=== PATIENT | male | born 1940 | race Caucasian/White ===

== ENCOUNTER 2020-02-27 09:46 | Inpatient (IN) | payer MEDICARE, OTHER ==
[2020-02-27 10:59] LABS: PCO2 ARTERIAL,POC 55 mmHg (35-48); PH ARTERIAL,POC 7.2 pH (7.35-7.45); PO2 ARTERIAL,POC 63 mmHg (83-108)
--- NOTE | 2020-02-27 11:01 | EDM.PDOC ---
ED HPI GENERAL MEDICAL PROBLEM - General Chief Complaint: Respiratory Problem Stated Complaint: SOB Time Seen by Provider: 02/27/20 10:00 Source of Information: Reports: Patient, Family History Limitations: Reports: No Limitations - History of Present Illness INITIAL COMMENTS - FREE TEXT/NARRATIVE: Patient presented to the ED because of increasing cough,lethargy, dyspnea for th e past week. The cough is mostly non-productive, no associated fever or chills. His dyspnea got worse this morning and was seen in the clinic and was subsequently referred to the ED because he was hypoxemic with oxygen saturation of 40's. He is on home O2 due to his COPD and CHF but it doesn't seem to help with his dyspnea. Last night he had watery stools,denies any abdominal pain, nausea, or vomiting. Other Treatments [employer]: O2 4L/min NC. Duo nebulization. - Related Data Allergies Allergy/AdvReac Type Severity Reaction Status Date / Time Penicillins Allergy Other Verified 02/22/18 13:52 Home Meds: Home Meds Lisinopril 5 mg PO DAILY 04/13/14 [History] Albuterol/Ipratropium [DuoNeb 3.0-0.5 MG/3 ML] 3 ml INH BID 02/22/18 [History] Aspirin [Adult Aspirin] 81 mg PO DAILY 02/22/18 [History] Budesonide [Pulmicort] 0.5 mg IH BID 02/22/18 [History] Furosemide [Lasix] 20 mg PO DAILY 02/22/18 [History] atorvaSTATin [Lipitor] 20 mg PO BEDTIME 02/22/18 [History] carvediloL [Carvedilol] 12.5 mg PO BID 02/22/18 [History] traZODone HCl [Trazodone HCl] 50 mg PO BEDTIME 02/22/18 [History] Past Medical History HEENT History: Reports: Cataract Cardiovascular History: Reports: Heart Failure, High Cholesterol, Hypertension, Pacemaker, SOB on Exertion Respiratory History: Reports: COPD, Pneumonia, Recurrent, Sleep Apnea, SOB Genitourinary History: Reports: Prostate Disorder, Renal Disease Neurological History: Reports: None - Infectious Disease History Infectious Disease History: Reports: Mumps - Past Surgical History HEENT Surgical History: Reports: Oral Surgery Respiratory Surgical History: Reports: None GI Surgical History: Reports: Appendectomy, Cholecystectomy, Colonoscopy Male Surgical History: Reports: None Neurological Surgical History: Reports: None Social & Family History - Family History Family Medical History: Unobtainable - Caffeine Use Caffeine Use: Reports: Coffee ED ROS GENERAL - Review of Systems Review Of Systems: See Below Constitutional: Reports: Malaise, Weakness HEENT: Reports: No Symptoms Respiratory: Reports: Shortness of Breath, Cough. Denies: Sputum Cardiovascular: Reports: No Symptoms GI/Abdominal: Reports: No Symptoms : Reports: No Symptoms Musculoskeletal: Reports: No Symptoms Skin: Reports: No Symptoms Neurological: Reports: Weakness Psychiatric: Reports: No Symptoms ED EXAM, GENERAL - Physical Exam Exam: See Below Exam Limited By: Altered Mental Status General Appearance: Lethargic Eye Exam: Bilateral Eye: PERRL Ears: Normal External Exam Nose: Normal Inspection, Normal Mucosa Throat/Mouth: Normal Inspection, Normal Lips, No Airway Compromise Head: Atraumatic, Normocephalic Neck: Normal Inspection, Supple, Non-Tender Respiratory/Chest: No Respiratory Distress, Decreased Breath Sounds, Crackles Cardiovascular: Normal Peripheral Pulses, Regular Rate, Rhythm, No Gallop, No JVD, No Murmur GI/Abdominal: Normal Bowel Sounds, Soft, Non-Tender, No Organomegaly, Other (hyperactive bowel sound) Back Exam: Normal Inspection Extremities: Normal Inspection Neurological: Alert, Oriented, CN II-XII Intact Psychiatric: Normal Affect Skin Exam: Warm Course - Vital Signs Text/Narrative:: Labs/EKG/Chest xray result was discussed with patient and his Covid-positive NS @ 75 ml/hr Last Recorded V/S: Last Vital Signs Temp 36.4 C 02/27/20 09:46 Pulse 72 02/27/20 10:32 Resp 37 H 02/27/20 10:32 BP 104/65 02/27/20 10:32 Pulse Ox 90 L 02/27/20 10:32 - Orders/Labs/Meds Orders: Active Orders 24 hr Category Date Time Status Patient Status Manage Transfer [TRANSFER] Routine ADT 02/27/20 11:31 Active EKG Documentation Completion [RC] ASDIRECTED Care 02/27/20 10:00 Active Oxygen Therapy [RC] ASDIRECTED Care 02/27/20 10:01 Active Telemetry Monitoring [Cardiac Monitoring] [RC] .As Care 02/27/20 11:43 Active Directed Chest 1V Frontal [CR] Stat Exams 02/27/20 09:59 Taken UA W/MICROSCOPIC [URIN] Stat Lab 02/27/20 10:25 Ordered Sodium Chloride 0.9% [Saline Flush] Med 02/27/20 09:59 Active 10 ml FLUSH ASDIRECTED PRN Saline Lock Insert [OM.PC] Routine Oth 02/27/20 09:59 Ordered EKG 12 Lead [EK] Routine Ther 02/27/20 09:59 Ordered Medication Orders Sodium Chloride (Saline Flush) 10 ml FLUSH ASDIRECTED PRN PRN Reason: Keep Vein Open Labs: Laboratory Tests 02/27/20 02/27/20 02/27/20 Range/Units 10:11 10:11 10:11 WBC 6.4 (4.5-12.0) X10-3/uL RBC 5.05 (4.30-5.75) x10(6)uL Hgb 14.9 (13.5-17.8) g/dL Hct 46.2 (30.0-51.3) % MCV 91.5 (80-96) fL MCH 29.5 (27.7-33.6) pg MCHC 32.3 (32.2-35.4) g/dL RDW 13.2 (11.5-15.5) % Plt Count 119 L (125-369) X10(3)uL MPV 8.4 (7.4-10.4) fL Neut % (Auto) 69.6 (46-82) % Lymph % (Auto) 15.4 (13-37) % [place] % (Auto) 14.6 H (4-12) % Eos % (Auto) 0 L (1.0-5.0) % Baso % (Auto) 0 (0-2) % Neut # (Auto) 4.5 (1.6-8.3) # Lymph # (Auto) 1.0 (0.6-5.0) # [place] # (Auto) 0.9 (0.0-1.3) # Eos # (Auto) 0.0 (0.0-0.8) # Baso # (Auto) 0.0 (0.0-0.2) # PT (9.0-11.1) sec INR (1.00-1.24) APTT (24.4-33.2) SECONDS POC ABG pH (7.35-7.45) pH POC ABG pCO2 (35-48) mmHg POC ABG pO2 (83-108) mmHg POC ABG HCO3 (21-28) mmol/L ABG O2 Sat (Calculated) (94-98) % POC ABG Base Excess (-2-3) mmol/L Dl Test (PASS) O2 Delivery Device Sodium 137 (135-145) mmol/L Potassium 5.3 (3.5-5.3) mmol/L Chloride 102 (100-110) mmol/L Carbon Dioxide 24 (21-32) mmol/L BUN 71 H D (7-18) mg/dL Creatinine 2.7 H* (0.70-1.30) mg/dL Est Cr Clr Drug Dosing 19.61 mL/min Estimated GFR (MDRD) 23 L (>60) BUN/Creatinine Ratio 26.3 H (9-20) Glucose 162 H (80-116) mg/dL Calcium 8.8 (8.6-10.2) mg/dL Total Bilirubin 0.5 (0.1-1.3) mg/dL AST 31 H D (5-25) IU/L ALT 27 D (12-36) U/L Alkaline Phosphatase 38 L (56-112) IU/L Troponin I 31.9 (4.0-60.3) pg/mL NT-Pro-B Natriuret Pep 2681 H* (<=450) pg/mL Total Protein 7.7 (6.0-8.0) g/dL Albumin 3.2 (3.2-4.6) g/dL Globulin 4.5 g/dL Albumin/Globulin Ratio 0.7 SARS-CoV-2 RNA (GELY) (NEGATIVE) 02/27/20 02/27/20 02/27/20 Range/Units 10:11 10:25 10:50 WBC (4.5-12.0) X10-3/uL RBC (4.30-5.75) x10(6)uL Hgb (13.5-17.8) g/dL Hct (30.0-51.3) % MCV (80-96) fL MCH (27.7-33.6) pg MCHC (32.2-35.4) g/dL RDW (11.5-15.5) % Plt Count (125-369) X10(3)uL MPV (7.4-10.4) fL Neut % (Auto) (46-82) % Lymph % (Auto) (13-37) % [place] % (Auto) (4-12) % Eos % (Auto) (1.0-5.0) % Baso % (Auto) (0-2) % Neut # (Auto) (1.6-8.3) # Lymph # (Auto) (0.6-5.0) # [place] # (Auto) (0.0-1.3) # Eos # (Auto) (0.0-0.8) # Baso # (Auto) (0.0-0.2) # PT 11.1 (9.0-11.1) sec INR 1.03 (1.00-1.24) APTT 38.5 H (24.4-33.2) SECONDS POC ABG pH 7.2 L* (7.35-7.45) pH POC ABG pCO2 55 H (35-48) mmHg POC ABG pO2 63 L (83-108) mmHg POC ABG HCO3 22 (21-28) mmol/L ABG O2 Sat (Calculated) 86.2 L (94-98) % POC ABG Base Excess -6 L (-2-3) mmol/L Dl Test Pass (PASS) O2 Delivery Device Nasal cannula Sodium (135-145) mmol/L Potassium (3.5-5.3) mmol/L Chloride (100-110) mmol/L Carbon Dioxide (21-32) mmol/L BUN (7-18) mg/dL Creatinine (0.70-1.30) mg/dL Est Cr Clr Drug Dosing mL/min Estimated GFR (MDRD) (>60) BUN/Creatinine Ratio (9-20) Glucose (80-116) mg/dL Calcium (8.6-10.2) mg/dL Total Bilirubin (0.1-1.3) mg/dL AST (5-25) IU/L ALT (12-36) U/L Alkaline Phosphatase (56-112) IU/L Troponin I (4.0-60.3) pg/mL NT-Pro-B Natriuret Pep (<=450) pg/mL Total Protein (6.0-8.0) g/dL Albumin (3.2-4.6) g/dL Globulin g/dL Albumin/Globulin Ratio SARS-CoV-2 RNA (GELY) Positive H (NEGATIVE) Meds: Medications Generic Name Dose Route Start Last Admin Trade Name Freq PRN Reason Stop Dose Admin Sodium Chloride 10 ml 02/27/20 09:59 Saline Flush FLUSH ASDIRECTED PRN Keep Vein Open Departure - Departure Time of Disposition: 11:00 Disposition: Admitted As Inpatient 67 Condition: Good Clinical Impression: Coronavirus infection, Dehydration, JUMA (acute kidney injury) - Discharge Information Referrals: Dannie Sanchez MD [Primary Care Provider] - Forms: ED Department Discharge Sepsis Event Note (ED) - Evaluation Sepsis Screening Result: No Definite Risk - Focused Exam Vital Signs: Vital Signs Temp Pulse Resp BP Pulse Ox 02/27/20 10:32 72 37 H 104/65 90 L 02/27/20 09:46 36.4 C 76 39 H 117/44 L 87 L - My Orders Last 24 Hours: My Active Orders 02/27/20 09:59 Chest 1V Frontal [CR] Stat Sodium Chloride 0.9% [Saline Flush] 10 ml FLUSH ASDIRECTED PRN Saline Lock Insert [OM.PC] Routine EKG 12 Lead [EK] Routine 02/27/20 10:00 EKG Documentation Completion [RC] ASDIRECTED 02/27/20 10:01 Oxygen Therapy [RC] ASDIRECTED 02/27/20 10:25 UA W/MICROSCOPIC [URIN] Stat 02/27/20 11:31 Patient Status Manage Transfer [TRANSFER] Routine 02/27/20 11:43 Telemetry Monitoring [Cardiac Monitoring] [RC] .As Directed - Assessment/Plan Last 24 Hours: My Active Orders 02/27/20 09:59 Chest 1V Frontal [CR] Stat Sodium Chloride 0.9% [Saline Flush] 10 ml FLUSH ASDIRECTED PRN Saline Lock Insert [OM.PC] Routine EKG 12 Lead [EK] Routine 02/27/20 10:00 EKG Documentation Completion [RC] ASDIRECTED 02/27/20 10:01 Oxygen Therapy [RC] ASDIRECTED 02/27/20 10:25 UA W/MICROSCOPIC [URIN] Stat 02/27/20 11:31 Patient Status Manage Transfer [TRANSFER] Routine 02/27/20 11:43 Telemetry Monitoring [Cardiac Monitoring] [RC] .As Directed
--- NOTE | 2020-02-27 12:48 | CR ---
INDICATION: Dyspnea. CHEST ONE VIEW: An AP upright portable view of the chest was obtained 02/27/20 and compared with 02/22/18 and 04/14/14. The heart appears to be at the upper limits of normal in size and essentially unchanged from the previous study with bipolar pacemaker leads that are stable in position. Somewhat heavy markings at the lung bases likely are fibrotic in nature, but make it difficult to exclude minimal patchy bronchopneumonia. However, no gross consolidating pneumonia or effusion was seen. Overlying EKG leads are noted. IMPRESSION: Fairly stable appearance of the chest compared with 02/22/18 - correlate clinically. Difficult to exclude patchy bronchopneumonia at the lung bases, especially on the left. MTDD
[2020-02-27] MEDS ORDERED: Dexamethasone 4 MG/ML SDV IVPUSH ONE (13:09)
[2020-02-27] MEDS ORDERED: Sodium Chloride 0.9% 1,000 ML IV ONE (13:21)
[2020-02-27] MEDS ORDERED: REMDESIVIR 200 MG in Sodium Chloride 0.9% 250 ML IV ONE (13:31)
[2020-02-27] MEDS: Heparin Sodium 5,000 Units/ML Vial SUBCUT SCH ×2 (14:18→20:53)
[2020-02-27] MEDS ORDERED: Sodium Chloride 0.9% 1,000 ML IV SCH (14:43)
--- NOTE | 2020-02-27 14:54 | HP ---
ADMISSION DATE: 02/27/2020 History is from the patient and his clinic record. He is short of breath and unable to give much history. CHIEF COMPLAINT: Respiratory infection with COVID virus. HISTORY OF PRESENT ILLNESS: Mr. Nicolas is a 79-year-old man with a history of severe COPD, chronic cardiomyopathy with congestive heart failure and pacemaker implant. This was in the face of normal coronary arteries, hyperlipidemia, and hypertension. According to the patient, he had been feeling ill for over a week at home with diarrhea, weakness, respiratory difficulty. He normally wears oxygen at home and uses a BiPAP machine at night and during naps. For this reason, he came into the emergency room and is admitted for further respiratory treatment. He is declared code 3 DNR/DNI status. PAST MEDICAL HISTORY: 1. 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 2. He also has chronic obstructive sleep apnea. 3. Dyslipidemia. 4. History of ventricular tachycardia. 5. CKD, stage 3. 6. COPD. 7. Restless legs syndrome. 8. Gastritis. 9. Hypertension. 10.Hyperlipidemia. PAST SURGICAL HISTORY: He is status post bilateral cataract surgeries, blepharoplasty, and still has lower lid ectropion on the right. MEDICATIONS: 1. Aspirin 81 mg daily. 2. Xopenex 1 nebulizer every 4 hours p.r.n. 3. Lisinopril 5 mg daily. 4. Furosemide 20 mg daily. 5. Coreg 12.5 mg b.i.d. 6. Atorvastatin 20 mg at bedtime. 7. Budesonide nebulizer twice a day. 8. Brovana nebulizer twice a day. 9. Trazodone 25 to 50 mg at bedtime for sleep. ALLERGIES: Penicillin causes a rash. HABITS: Extensive history of cigarette smoking. No alcohol. FAMILY HISTORY: Parents both had hypertension. SOCIAL HISTORY: The patient is and lives with his in [place]. He is a retired school nurse. REVIEW OF SYSTEMS: GENERAL: No seizure, syncope, or recent significant weight change. SKIN: Negative for rash. HEENT: No recent changes in hearing or vision. 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 No sore throat or URI. CHEST: He does have a chronic cough and dyspnea on exertion. This has been slightly worse during the last week. ABDOMEN: No abdominal pain, nausea. He does report diarrhea, watery stools, but no blood in the stool. No hematuria. MUSCULOSKELETAL: No joint inflammation, swelling, or skin rash. PHYSICAL EXAMINATION: GENERAL: He is somewhat lethargic, but will open his eyes and answer questions. VITAL SIGNS: Blood pressure 104/65, pulse 72 and regular, respirations 35, O2 saturation 91% on 5 L nasal cannula. Weight 205 pounds. SKIN: Anicteric. Warm and dry without rash. HEENT: Shows pupils to be equal and reactive. He has right lid ectropion. Throat is clear. LUNGS: Have distant breath sounds. He has expiratory wheezes. No focal consolidation. HEART: Regular. No murmur or gallop heard. ABDOMEN: Normal bowel sounds. Soft and nontender. EXTREMITIES: Show no edema at the ankles. LABORATORY DATA: White count 6400, hemoglobin 14.9, platelets 119. Arterial pH 7.2, pCO2 of 55, PO2 of 63 on 5 L nasal cannula oxygen. Potassium 5.3, BUN 71, creatinine 2.7. BNP 2681. COVID RNA test positive. ASSESSMENT: 1. Acute COVID-19 viral infection. 2. Severe chronic obstructive pulmonary disease. 3. Idiopathic cardiomyopathy with low ejection fraction. 4. Right eyelid infection. 5. Chronic kidney disease, stage 3 to 4. 6. Obstructive sleep apnea. PLAN: He is admitted to our COVID-19 Respiratory Unit. I performed his exam while in full infection gear with gloves, gown, and PAPR device. We will continue his previously requested DNR status. We will use his BiPAP device as needed. Prognosis is quite guarded. /[id number] RO/MODL
[2020-02-27] MEDS: Carvedilol 12.5 MG Tab PO SCH (20:14)
[2020-02-27] MEDS: Budesonide 0.5 MG/2 ML Neb Susp NEB SCH (20:21)
[2020-02-27] MEDS: Arformoterol 15 MCG/2 ML Neb Soln NEB SCH (20:21)
[2020-02-27] MEDS ORDERED: Budesonide 0.5 MG/2 ML Neb Susp NEB SCH (21:00)
[2020-02-28] MEDS ORDERED: Morphine 4 MG/ML VIAL IVPUSH PRN (04:47)
[2020-02-28] MEDS: Sodium Chloride 0.9% 10 ML Syringe FLUSH PRN ×2 (05:11→22:51)
[2020-02-28] MEDS: Heparin Sodium 5,000 Units/ML Vial SUBCUT SCH ×3 (05:18→20:21)
[2020-02-28] MEDS: Arformoterol 15 MCG/2 ML Neb Soln NEB SCH ×2 (06:55→20:17)
[2020-02-28] MEDS: Budesonide 0.5 MG/2 ML Neb Susp NEB SCH ×2 (07:05→20:16)
--- NOTE | 2020-02-28 09:16 | PN ---
DATE SEEN: 02/28/2020 HISTORY: Mike is a 79-year-old man with severe COPD and idiopathic cardiomyopathy, who was admitted with an acute COVID infection. He has been on home O2 and on admission he required 5 L of oxygen to maintain his saturations. His BiPAP was applied. He was moderately restless overnight and received a dose of 4 mg morphine and answer questions. He does not volunteer verbalization. PHYSICAL EXAMINATION: VITAL SIGNS: Blood pressure 108/62, pulse is 64 and irregular, respirations 22, O2 saturation 93% on 4 L nasal cannula this morning. Weight 210 pounds. SKIN: Clear without rash or trauma. HEENT: Mouth was dry. LUNGS: He had distant breath sounds. He had fine rales at both bases and slight rhonchi at the left mid lung field. HEART: Irregular. No murmur heard. Heart sounds are distant. ABDOMEN: Soft, normal bowel sounds, nontender. EXTREMITIES: No edema at the ankles. LABORATORY DATA: Hemoglobin 14.3, white count 4000, platelets 121. PTT 58. BUN 79, slightly higher than yesterday; creatinine 2.4, down from 2.7 yesterday. ASSESSMENT: 1. Acute COVID infection. 2. Severe chronic obstructive pulmonary disease. 3. Idiopathic cardiomyopathy. 4. Chronic atrial fibrillation. 5. Cardiac arrhythmia, likely atrial fibrillation. 6. Chronic kidney disease stage 4. PLAN: We will continue his daily dexamethasone, respiratory support. Because of his poor renal function, he is not a candidate for remdesivir. Condition remains extremely guarded. /[id number] DELANEY/MELIZA
[2020-02-28] MEDS: Carvedilol 12.5 MG Tab PO SCH ×2 (10:26→20:14)
[2020-02-28] MEDS: Sodium Chloride 0.9% 1,000 ML IV SCH ×2 (10:46→23:09)
[2020-02-28] MEDS: Morphine 2 MG/ML SYRINGE IVPUSH PRN (22:47)
[2020-02-29] MEDS: Heparin Sodium 5,000 Units/ML Vial SUBCUT SCH ×3 (06:00→20:07)
[2020-02-29] MEDS: Arformoterol 15 MCG/2 ML Neb Soln NEB SCH ×2 (06:28→20:17)
[2020-02-29] MEDS: Budesonide 0.5 MG/2 ML Neb Susp NEB SCH ×2 (06:31→20:02)
[2020-02-29] MEDS: Carvedilol 12.5 MG Tab PO SCH ×2 (09:53→20:06)
--- NOTE | 2020-02-29 12:23 | PN ---
DATE SEEN: 02/29/2020 HISTORY: Mike is a 79-year-old man, admitted because of acute COVID respiratory infection. He has underlying severe chronic obstructive pulmonary disease and idiopathic cardiomyopathy with obstructive sleep apnea. The patient has been in the COVID unit on Remdesivir and has been tolerating it satisfactorily. He is examined in the COVID unit and I was in full protective gear with gloves, gown, and PAPR. PHYSICAL EXAMINATION: GENERAL: He is awake and alert, and is able to answer questions appropriately. VITAL SIGNS: Blood pressure 107/64, pulse 64 and irregular, respirations 20, O2 saturation this morning 88% on 5 L nasal cannula. Weight 212 pounds. SKIN: Shows no rash. LUNGS: Have distant breath sounds, but no consolidation. Expiratory wheezes are present bilaterally. HEART: Irregular. No murmur heard. ABDOMEN: Normal bowel sounds. Soft and nontender. EXTREMITIES: Showed no edema. LABORATORY DATA: PTT 51.4, PT 10.9. Potassium 6.1, BUN 91, creatinine 2.5. ASSESSMENT: 1. COVID respiratory infection. 2. Severe chronic obstructive pulmonary disease. 3. Idiopathic cardiomyopathy. 4. Chronic kidney disease stage IV. PLAN: Mike is not a candidate for Remdesivir because of his chronic kidney disease. He appears to be still be somewhat dehydrated. We will increase his IV fluids. Continue his other medications and reassess. Mike remains on do not resuscitate/do not intubate status. /[id number] RO/MODL
[2020-02-29] MEDS: Sodium Chloride 0.9% 1,000 ML IV SCH (12:24)
[2020-02-29] MEDS: Morphine 2 MG/ML SYRINGE IVPUSH PRN ×2 (14:59→18:16)
[2020-03-01] MEDS: Morphine 2 MG/ML SYRINGE IVPUSH PRN ×2 (02:16→11:14)
[2020-03-01] MEDS: Heparin Sodium 5,000 Units/ML Vial SUBCUT SCH ×2 (05:42→12:35)
[2020-03-01] MEDS: Budesonide 0.5 MG/2 ML Neb Susp NEB SCH (06:23)
[2020-03-01] MEDS: Arformoterol 15 MCG/2 ML Neb Soln NEB SCH (06:29)
[2020-03-01] MEDS: Sodium Chloride 0.9% 10 ML Syringe FLUSH PRN ×4 (07:04→11:41)
[2020-03-01] MEDS ORDERED: 50% Dextrose in Water 50 ML Syringe IVPUSH PRN (08:42)
[2020-03-01] MEDS ORDERED: Glucagon,Human Recombinant 1 MG Vial IM PRN (08:42)
[2020-03-01] MEDS ORDERED: Insulin Lispro 100 Unit/ML 3 ML KwikPen SUBCUT ONE ×2 (08:45→09:00)
[2020-03-01] MEDS: Carvedilol 12.5 MG Tab PO SCH (08:50)
[2020-03-01] MEDS ORDERED: Dexamethasone 2 MG Tab PO SCH (09:00)
[2020-03-01] MEDS ORDERED: LORazepam 0.5 MG Tab PO PRN ×2 (09:01→11:22)
--- NOTE | 2020-03-01 10:57 | PCM.PN ---
- General Info Date of Service: 03/01/20 Subjective Update: Having more shortness of breath, anxiety this morning, refuses to wear his home BiPAP machine. Has been getting PRN morphine for air hunger since he is a DNR/DNI but has not been helping. Drank a little this morning but hasn't eaten breakfast yet. Having more see saw breathing with wheezing, on Brovana and Pulmicort at home and here. - Patient Data Vitals - Most Recent: Last Vital Signs Temp 98.7 F 03/01/20 08:00 Pulse 78 03/01/20 08:50 Resp 40 H 03/01/20 08:00 BP 142/73 H 03/01/20 08:50 Pulse Ox 86 L 03/01/20 08:00 Weight - Most Recent: 210 lb 6 oz I&O - Last 24 Hours: Intake & Output 02/29/20 03/01/20 03/01/20 22:59 06:59 14:59 Intake Total 1055 300 Output Total 500 225 Balance 555 75 Lab Results Last 24 Hours: Laboratory Results - last 24 hr 02/29/20 03/01/20 03/01/20 Range/Units 11:43 05:45 06:35 APTT 29.5 (24.4-33.2) SECONDS Sodium (135-145) mmol/L Potassium (3.5-5.3) mmol/L Chloride (100-110) mmol/L Carbon Dioxide (21-32) mmol/L BUN (7-18) mg/dL Creatinine (0.70-1.30) mg/dL Est Cr Clr Drug Dosing mL/min Estimated GFR (MDRD) (>60) BUN/Creatinine Ratio (9-20) Glucose (80-116) mg/dL POC Glucose 191 H 159 H (74-100) mg/dL Calcium (8.6-10.2) mg/dL Phosphorus (2.6-4.6) mg/dL Albumin (3.2-4.6) g/dL 03/01/20 Range/Units 06:35 APTT (24.4-33.2) SECONDS Sodium 138 (135-145) mmol/L Potassium 6.7 H* (3.5-5.3) mmol/L Chloride 106 (100-110) mmol/L Carbon Dioxide 22 (21-32) mmol/L BUN 109 H* (7-18) mg/dL Creatinine 2.4 H* (0.70-1.30) mg/dL Est Cr Clr Drug Dosing 22.07 mL/min Estimated GFR (MDRD) 26 L (>60) BUN/Creatinine Ratio 45.4 H (9-20) Glucose 184 H (80-116) mg/dL POC Glucose (74-100) mg/dL Calcium 8.2 L (8.6-10.2) mg/dL Phosphorus 5.4 H (2.6-4.6) mg/dL Albumin 2.9 L (3.2-4.6) g/dL Med Orders - Current: Current Medications Arformoterol Tartrate (Brovana) 15 mcg NEB BIDRT [facility] Last Admin: 03/01/20 06:29 Dose: 15 mcg Documented by: Budesonide (Pulmicort) 0.5 mg NEB BIDRT [facility] Last Admin: 03/01/20 06:23 Dose: 0.5 mg Documented by: Carvedilol (Coreg) 12.5 mg PO BID [facility] Last Admin: 03/01/20 08:50 Dose: 12.5 mg Documented by: Dexamethasone (Dexamethasone) 6 mg PO DAILY [facility] Dextrose/Water (Dextrose 50% In Water) 50 ml IVPUSH ASDIRECTED PRN PRN Reason: Hypoglycemia Glucagon (Glucagen) 1 mg IM ASDIRECTED PRN PRN Reason: Hypoglycemia Heparin Sodium (Porcine) (Heparin Sodium) 5,000 units SUBCUT Q8H [facility] Last Admin: 03/01/20 05:42 Dose: 5,000 units Documented by: Lorazepam (Ativan) 0.25 mg PO Q4H PRN PRN Reason: Anxiety Last Admin: 03/01/20 09:40 Dose: 0.25 mg Documented by: Morphine Sulfate (Morphine) 2 mg IVPUSH Q4H PRN PRN Reason: Air Hunger Last Admin: 03/01/20 02:16 Dose: 2 mg Documented by: Sodium Chloride (Saline Flush) 10 ml FLUSH ASDIRECTED PRN PRN Reason: Keep Vein Open Last Admin: 03/01/20 08:50 Dose: 10 ml Documented by: Discontinued Medications Budesonide (Pulmicort) 0.5 mg NEB BID [facility] Dexamethasone (Decadron) 10 mg IVPUSH ONETIME ONE Stop: 02/27/20 13:10 Last Admin: 02/27/20 14:13 Dose: 10 mg Documented by: Dexamethasone (Dexamethasone) 3 mg PO BIDMEALS [facility] Last Admin: 03/01/20 08:47 Dose: 3 mg Documented by: Dexamethasone (Dexamethasone) 6 mg PO DAILY [facility] Dexamethasone (Dexamethasone) 3 mg PO ONETIME ONE Stop: 03/01/20 09:46 Heparin Sodium (Porcine) (Heparin Sodium) 7,500 units SUBCUT Q8H [facility] Last Admin: 02/28/20 13:02 Dose: 7,500 units Documented by: Sodium Chloride (Normal Saline) 1,000 mls @ 75 mls/hr IV ASDIRECTED ONE Stop: 02/28/20 02:40 Last Admin: 02/27/20 12:10 Dose: 75 mls/hr Documented by: Remdesivir 200 mg/ Sodium (Chloride) 250 mls @ 250 mls/hr IV ONETIME ONE Stop: 02/27/20 13:32 Last Admin: 02/27/20 17:20 Dose: Not Given Documented by: Sodium Chloride (Normal Saline) 1,000 mls @ 150 mls/hr IV ASDIRECTED [facility] Last Admin: 02/29/20 12:24 Dose: 150 mls/hr Documented by: Insulin Human Lispro (Humalog) 2 unit SUBCUT ONETIME ONE Stop: 03/01/20 08:46 Last Admin: 03/01/20 09:04 Dose: 2 unit Documented by: Morphine Sulfate (Morphine) 4 mg IVPUSH Q4H PRN PRN Reason: Air Hunger Last Admin: 02/28/20 05:10 Dose: 4 mg Documented by: - Exam Quality Assessment: Supplemental Oxygen, Urine Catheter, DVT Prophylaxis General: Alert, Oriented, Moderate Distress Lungs: Decreased Breath Sounds (bibasilar), Crackles (BUL), Wheezing (throughout), Other (See saw breathing, increased respiratory effort) Cardiovascular: Regular Rate, Regular Rhythm GI/Abdominal Exam: Normal Bowel Sounds, Soft, Non-Tender, No Distention Sepsis Event Note - Evaluation Sepsis Screening Result: No Definite Risk - Focused Exam Vital Signs: Vital Signs Temp Pulse Pulse Pulse Resp BP BP 03/01/20 08:50 78 142/73 H 03/01/20 08:00 98.7 F 77 40 H 142/73 H 03/01/20 06:23 74 72 03/01/20 00:00 98.2 F 72 22 H 142/81 H Pulse Ox Pulse Ox 03/01/20 08:50 03/01/20 08:00 86 L 03/01/20 06:23 03/01/20 00:00 92 L 92 L - Problem List & Annotations (1) Coronavirus infection SNOMED Code(s): 863231891 Code(s): B34.2 - CORONAVIRUS INFECTION, UNSPECIFIED Status: Acute Current Visit: Yes Annotation/Comment:: Not remdesivir candidate due to CKD, Dexamethasone 6 mg daily day 3. Hyperkalemia: Insulin 2 units now, recheck at noon, adjust based on labs. Morphine 2 mg IV as needed air hunger, added Ativan 0.5mg q2h as needed anxiety/air hunger. (2) CKD (chronic kidney disease), stage III SNOMED Code(s): 458526533 Code(s): N18.3 - CHRONIC KIDNEY DISEASE, STAGE 3 (MODERATE) * DO NOT USE * Status: Acute Current Visit: No Annotation/Comment:: 2.7 on admission, slowly improving. (3) COPD, Mild chronic obstructive pulmonary disease SNOMED Code(s): 641400058 Code(s): J44.9 - CHRONIC OBSTRUCTIVE PULMONARY DISEASE, UNSPECIFIED Status: Acute Current Visit: No Annotation/Comment:: Pulmicort & Brovana (4) Combined systolic and diastolic congestive heart failure SNOMED Code(s): 82711328, 063824174 Code(s): I50.40 - UNSP COMBINED SYSTOLIC AND DIASTOLIC (CONGESTIVE) HRT FAIL Status: Acute Current Visit: No Annotation/Comment:: Appears stable at this time. Continue outpatient medication. (5) DVT prophylaxis SNOMED Code(s): 565817436, 852761402 Code(s): SYY9353 - Status: Acute Current Visit: No Annotation/Comment:: Lovenox renally dosed. (6) HTN (hypertension) SNOMED Code(s): 22754252 Code(s): I10 - ESSENTIAL (PRIMARY) HYPERTENSION Status: Acute Current Visit: No Annotation/Comment:: Currently well-controlled. Continue outpatient medications. (7) KAELA (obstructive sleep apnea) SNOMED Code(s): 73436757 Code(s): G47.33 - OBSTRUCTIVE SLEEP APNEA (ADULT) (PEDIATRIC) Status: Chronic Current Visit: No Annotation/Comment:: Continue BiPAP per home settings. (8) Tobacco dependence syndrome SNOMED Code(s): 68676862 Code(s): F17.200 - NICOTINE DEPENDENCE, UNSPECIFIED, UNCOMPLICATED Status: Chronic Current Visit: No (9) Palliative care patient SNOMED Code(s): 023404255, 106563291 Code(s): Z51.5 - ENCOUNTER FOR PALLIATIVE CARE Status: Chronic Current Visit: Yes Annotation/Comment:: CHF EF <30%, severe COPD on BiPAP - Problem List Review Problem List Initiated/Reviewed/Updated: Yes - My Orders Last 24 Hours: My Active Orders 03/01/20 08:42 Dextrose 50% in Water 50 ml IVPUSH ASDIRECTED PRN Glucagon,Human Recombinant [GlucaGen] 1 mg IM ASDIRECTED PRN 03/01/20 09:01 LORazepam [Ativan] 0.25 mg PO Q4H PRN 03/01/20 10:12 Convert IV to Peripheral Lock [Convert IV to Saline Lock] [OM.PC] Routine 03/01/20 12:00 POTASSIUM,K [CHEM] Routine 03/02/20 09:00 dexAMETHasone 6 mg PO DAILY - Plan Plan:: 1. COVID infection: home BiPAP, oxygen by NC at 5 liters, Dexamethasone 6 mg daily day 3. Hyperkalemia: insulin 2 units and recheck at noon, Lasix 40 mg IV x 1. Morphine and Ativan as needed air hunger/anxiety. Declining, he is DNR/DNI. His Elham was notified, she would like him to be kept comfortable. He did not have much response to Ativan 0.25 mg increase to 0.5 mg q2h. She asked about hospice care, will talk with discharge planning. 2. CKD: 2.4, on admission 2.7. 3. Palliative care status: CHF & COPD. Critical at this point.
[2020-03-01] MEDS ORDERED: Furosemide 40 MG/4 ML VIAL IVPUSH STA (11:20)
[2020-03-01] MEDS ORDERED: Levalbuterol HCl 1.25 MG/3 ML Neb NEB PRN (11:21)
[2020-03-01] MEDS ORDERED: LORazepam 2 MG/ML SDV ONE (13:17)
[2020-03-01] MEDS: LORazepam 2 MG/ML SDV IVPUSH PRN ×3 (13:19→20:20)
--- NOTE | 2020-03-01 17:25 | PCM.SN.2 ---
- Free Text/Narrative Note: Declining, his Elham asked for him to be made comfort measures to discontinue all nebulizers and medications except Morphine & Ativan for comfort measures. Code status changed to comfort measures, medications discontinued as above. Cardiac monitoring discontinued. Vitals changed to qshift. glucose checks discontinued.
[2020-03-02] MEDS: Sodium Chloride 0.9% 10 ML Syringe FLUSH PRN ×9 (00:05→23:17)
[2020-03-02] MEDS: LORazepam 2 MG/ML SDV IVPUSH PRN ×9 (00:05→21:40)
[2020-03-02 02:26] VITALS: BP 131/75
[2020-03-02] MEDS ORDERED: Dexamethasone 2 MG Tab PO SCH (09:00)
[2020-03-02 13:55] VITALS: PULSE 64
--- NOTE | 2020-03-02 15:17 | PCM.PN ---
- General Info Date of Service: 03/02/20 Subjective Update: Mike kept BiPap on until last evening, was becoming more agitated with it so his , Elham asked for it to be removed and just oxygen by nasal cannula. He is at his home oxygen rate of 5L/min, she would like it left there for comfort. He is responding better to Ativan than Morphine so nursing has but using that more, his use has increased to every couple of hours. Elham also requested that his defibrillator be deactivated as she noticed he seemed to be arching his back and concerned that he was getting shocked. He had [employer] dual chamber defibrillator changed 08/03/2018, spoke with sales representative uniforms from [employer] who stated we could deactivate with magnet, if it was expected that it would be weeks before he passed then they would need to come out and deactivate. - Patient Data Vitals - Most Recent: Last Vital Signs Temp 97.4 F 03/02/20 08:00 Pulse 64 03/02/20 08:00 Resp 28 H 03/02/20 08:00 BP 131/75 03/02/20 00:00 Pulse Ox 93 L 03/02/20 08:00 Weight - Most Recent: 206 lb 1.6 oz I&O - Last 24 Hours: Intake & Output 03/02/20 03/02/20 03/02/20 06:59 14:59 22:59 Output Total 500 Balance -500 Lab Results Last 24 Hours: Laboratory Results - last 24 hr 03/01/20 Range/Units 17:15 POC Glucose 201 H (74-100) mg/dL Med Orders - Current: Current Medications Lorazepam (Ativan) 0.5 mg IVPUSH Q30M PRN PRN Reason: Anxiety Last Admin: 03/02/20 14:59 Dose: 0.5 mg Documented by: Morphine Sulfate (Morphine) 2 mg IVPUSH Q30M PRN PRN Reason: Air Hunger Sodium Chloride (Saline Flush) 10 ml FLUSH ASDIRECTED PRN PRN Reason: Keep Vein Open Last Admin: 03/02/20 13:00 Dose: 10 ml Documented by: Discontinued Medications Arformoterol Tartrate (Brovana) 15 mcg NEB BIDRT [facility] Last Admin: 03/01/20 06:29 Dose: 15 mcg Documented by: Budesonide (Pulmicort) 0.5 mg NEB BIDRT [facility] Last Admin: 03/01/20 06:23 Dose: 0.5 mg Documented by: Budesonide (Pulmicort) 0.5 mg NEB BID [facility] Carvedilol (Coreg) 12.5 mg PO BID [facility] Last Admin: 03/01/20 08:50 Dose: 12.5 mg Documented by: Dexamethasone (Decadron) 10 mg IVPUSH ONETIME ONE Stop: 02/27/20 13:10 Last Admin: 02/27/20 14:13 Dose: 10 mg Documented by: Dexamethasone (Dexamethasone) 3 mg PO BIDMEALS [facility] Last Admin: 03/01/20 08:47 Dose: 3 mg Documented by: Dexamethasone (Dexamethasone) 6 mg PO DAILY [facility] Last Admin: 03/01/20 11:52 Dose: Not Given Documented by: Dexamethasone (Dexamethasone) 6 mg PO DAILY [facility] Dexamethasone (Dexamethasone) 3 mg PO ONETIME ONE Stop: 03/01/20 09:46 Last Admin: 03/01/20 11:23 Dose: 3 mg Documented by: Dextrose/Water (Dextrose 50% In Water) 50 ml IVPUSH ASDIRECTED PRN PRN Reason: Hypoglycemia Furosemide (Lasix) 40 mg IVPUSH NOW STA Stop: 03/01/20 11:21 Last Admin: 03/01/20 11:40 Dose: 40 mg Documented by: Glucagon (Glucagen) 1 mg IM ASDIRECTED PRN PRN Reason: Hypoglycemia Heparin Sodium (Porcine) (Heparin Sodium) 7,500 units SUBCUT Q8H [facility] Last Admin: 02/28/20 13:02 Dose: 7,500 units Documented by: Heparin Sodium (Porcine) (Heparin Sodium) 5,000 units SUBCUT Q8H [facility] Last Admin: 03/01/20 12:35 Dose: 5,000 units Documented by: Sodium Chloride (Normal Saline) 1,000 mls @ 75 mls/hr IV ASDIRECTED ONE Stop: 02/28/20 02:40 Last Admin: 02/27/20 12:10 Dose: 75 mls/hr Documented by: Remdesivir 200 mg/ Sodium (Chloride) 250 mls @ 250 mls/hr IV ONETIME ONE Stop: 02/27/20 13:32 Last Admin: 02/27/20 17:20 Dose: Not Given Documented by: Sodium Chloride (Normal Saline) 1,000 mls @ 150 mls/hr IV ASDIRECTED [facility] Last Admin: 02/29/20 12:24 Dose: 150 mls/hr Documented by: Insulin Human Lispro (Humalog) 2 unit SUBCUT ONETIME ONE Stop: 03/01/20 08:46 Last Admin: 03/01/20 09:04 Dose: 2 unit Documented by: Levalbuterol HCl (Xopenex) 1.25 mg NEB Q4H PRN PRN Reason: Shortness of Breath Last Admin: 03/01/20 11:42 Dose: 1.25 mg Documented by: Lorazepam (Ativan) 0.25 mg PO Q4H PRN PRN Reason: Anxiety Last Admin: 03/01/20 09:40 Dose: 0.25 mg Documented by: Lorazepam (Ativan) 0.5 mg PO Q2H PRN PRN Reason: Anxiety Lorazepam (Ativan) Confirm Administered Dose 2 mg .ROUTE .STK-MED ONE Stop: 03/01/20 13:18 Last Admin: 03/01/20 13:50 Dose: Not Given Documented by: Morphine Sulfate (Morphine) 4 mg IVPUSH Q4H PRN PRN Reason: Air Hunger Last Admin: 02/28/20 05:10 Dose: 4 mg Documented by: Morphine Sulfate (Morphine) 2 mg IVPUSH Q4H PRN PRN Reason: Air Hunger Last Admin: 03/01/20 11:14 Dose: 2 mg Documented by: - Exam General: Obtunded (dusky, prolonged expiratory phase, mouth breathing) Lungs: Decreased Breath Sounds. No: Wheezing Cardiovascular: Regular Rate (63), Regular Rhythm GI/Abdominal Exam: Soft, No Distention, Abnormal Bowel Sounds (hypoactive) Extremities: Pedal Edema (hands and feet) Skin: Other (pale in extremities, no mottling, face and upper chest dusky.) Sepsis Event Note - Evaluation Sepsis Screening Result: No Definite Risk - Focused Exam Vital Signs: Vital Signs Temp Pulse Resp Pulse Ox 03/02/20 08:00 97.4 F 64 28 H 93 L 03/02/20 06:21 91 L 03/02/20 04:35 89 L - Problem List & Annotations (1) End of life care SNOMED Code(s): 683561281, 743879484 Code(s): Z51.5 - ENCOUNTER FOR PALLIATIVE CARE Status: Acute Current Visit: Yes (2) Coronavirus infection SNOMED Code(s): 638038980 Code(s): B34.2 - CORONAVIRUS INFECTION, UNSPECIFIED Status: Acute Current Visit: Yes Annotation/Comment:: Not remdesivir candidate due to CKD, Dexamethasone 6 mg daily day 3. Hyperkalemia: Insulin 2 units now, recheck at noon, adjust based on labs. Morphine 2 mg IV as needed air hunger, added Ativan 0.5mg q2h as needed anxiety/air hunger. (3) CKD (chronic kidney disease), stage III SNOMED Code(s): 899632946 Code(s): N18.3 - CHRONIC KIDNEY DISEASE, STAGE 3 (MODERATE) * DO NOT USE * Status: Acute Current Visit: No Annotation/Comment:: 2.7 on admission, slowly improving. (4) COPD, Mild chronic obstructive pulmonary disease SNOMED Code(s): 141587763 Code(s): J44.9 - CHRONIC OBSTRUCTIVE PULMONARY DISEASE, UNSPECIFIED Status: Acute Current Visit: No Annotation/Comment:: Pulmicort & Brovana (5) Combined systolic and diastolic congestive heart failure SNOMED Code(s): 25657754, 429876942 Code(s): I50.40 - UNSP COMBINED SYSTOLIC AND DIASTOLIC (CONGESTIVE) HRT FAIL Status: Acute Current Visit: No Annotation/Comment:: Appears stable at this time. Continue outpatient medication. (6) DVT prophylaxis SNOMED Code(s): 711094465, 259146828 Code(s): GZD4353 - Status: Acute Current Visit: No Annotation/Comment:: Lovenox renally dosed. (7) HTN (hypertension) SNOMED Code(s): 25390540 Code(s): I10 - ESSENTIAL (PRIMARY) HYPERTENSION Status: Acute Current Visit: No Annotation/Comment:: Currently well-controlled. Continue outpatient medications. (8) KAELA (obstructive sleep apnea) SNOMED Code(s): 75937057 Code(s): G47.33 - OBSTRUCTIVE SLEEP APNEA (ADULT) (PEDIATRIC) Status: Chronic Current Visit: No Annotation/Comment:: Continue BiPAP per home settings. (9) Tobacco dependence syndrome SNOMED Code(s): 07792825 Code(s): F17.200 - NICOTINE DEPENDENCE, UNSPECIFIED, UNCOMPLICATED Status: Chronic Current Visit: No (10) Palliative care patient SNOMED Code(s): 282270118, 168939535 Code(s): Z51.5 - ENCOUNTER FOR PALLIATIVE CARE Status: Chronic Current Visit: Yes Annotation/Comment:: CHF EF <30%, severe COPD on BiPAP - Problem List Review Problem List Initiated/Reviewed/Updated: Yes - My Orders Last 24 Hours: My Active Orders 03/01/20 16:47 Code Status [Resuscitation Status] Routine 03/01/20 17:21 Discontinue Telemetry Monitoring [Cardiac Monitoring Discontinue] [RC] Click to Edit - Plan Plan:: End of life care: Ativan 0.5 mg IV q30 min as needed, morphine 2 mg IV q30m as needed. Oxygen at 5L by ri per family request. At 1502 magnet was placed over implantable defibrillator, beeped for 5 sec and then stopped, secured with Transpore tape, had been advised by [employer] rep to leave taped in place until his passes. His was at bedside. He had been given Ativan prior to deactivation, no evidence of any pain, respirations remained same at 24, pulse after deactivation was 60-63 bpm. Continue comfort measures.
[2020-03-02] MEDS: Morphine 2 MG/ML SYRINGE IVPUSH PRN (23:17)
[2020-03-03] MEDS: Morphine 2 MG/ML SYRINGE IVPUSH PRN ×6 (00:38→23:21)
[2020-03-03] MEDS: Sodium Chloride 0.9% 10 ML Syringe FLUSH PRN ×5 (00:38→23:20)
[2020-03-03] MEDS ORDERED: Carboxymethylcellulose Sodium 0.5% Ophth Soln 15 ML Bottle ONE (06:23)
--- NOTE | 2020-03-03 10:42 | PCM.PN ---
- General Info Date of Service: 03/03/20 Subjective Update: Mike's breathing is more shallow this morning, with audible wheezing. Unresponsive. His went home for few hours. Family utilized zoom meeting yesterday so they could speak with him. - Patient Data Vitals - Most Recent: Last Vital Signs Temp 97.4 F 03/02/20 08:00 Pulse 64 03/02/20 08:00 Resp 28 H 03/02/20 08:00 BP 131/75 03/02/20 00:00 Pulse Ox 93 L 03/02/20 08:00 Weight - Most Recent: 206 lb 1.6 oz I&O - Last 24 Hours: Intake & Output 03/02/20 03/03/20 03/03/20 22:59 06:59 14:59 Output Total 800 200 Balance -800 -200 Med Orders - Current: Current Medications Artificial Tears (Refresh) 0 each EYEBOTH Q1H PRN PRN Reason: Dry Eyes Lorazepam (Ativan) 0.5 mg IVPUSH Q30M PRN PRN Reason: Anxiety Last Admin: 03/02/20 21:40 Dose: 0.5 mg Documented by: Morphine Sulfate (Morphine) 2 mg IVPUSH Q30M PRN PRN Reason: Air Hunger Last Admin: 03/03/20 00:38 Dose: 2 mg Documented by: Sodium Chloride (Saline Flush) 10 ml FLUSH ASDIRECTED PRN PRN Reason: Keep Vein Open Last Admin: 03/03/20 00:38 Dose: 10 ml Documented by: Discontinued Medications Arformoterol Tartrate (Brovana) 15 mcg NEB BIDRT [facility] Last Admin: 03/01/20 06:29 Dose: 15 mcg Documented by: Artificial Tears (Refresh Tears 0.5%) Confirm Administered Dose 15 ml .ROUTE .STK-MED ONE Stop: 03/03/20 06:24 Last Admin: 03/03/20 06:45 Dose: 2 drop Documented by: Budesonide (Pulmicort) 0.5 mg NEB BIDRT [facility] Last Admin: 03/01/20 06:23 Dose: 0.5 mg Documented by: Budesonide (Pulmicort) 0.5 mg NEB BID TL Carvedilol (Coreg) 12.5 mg PO BID [facility] Last Admin: 03/01/20 08:50 Dose: 12.5 mg Documented by: Dexamethasone (Decadron) 10 mg IVPUSH ONETIME ONE Stop: 02/27/20 13:10 Last Admin: 02/27/20 14:13 Dose: 10 mg Documented by: Dexamethasone (Dexamethasone) 3 mg PO BIDMEALS [facility] Last Admin: 03/01/20 08:47 Dose: 3 mg Documented by: Dexamethasone (Dexamethasone) 6 mg PO DAILY [facility] Last Admin: 03/01/20 11:52 Dose: Not Given Documented by: Dexamethasone (Dexamethasone) 6 mg PO DAILY [facility] Dexamethasone (Dexamethasone) 3 mg PO ONETIME ONE Stop: 03/01/20 09:46 Last Admin: 03/01/20 11:23 Dose: 3 mg Documented by: Dextrose/Water (Dextrose 50% In Water) 50 ml IVPUSH ASDIRECTED PRN PRN Reason: Hypoglycemia Furosemide (Lasix) 40 mg IVPUSH NOW STA Stop: 03/01/20 11:21 Last Admin: 03/01/20 11:40 Dose: 40 mg Documented by: Glucagon (Glucagen) 1 mg IM ASDIRECTED PRN PRN Reason: Hypoglycemia Heparin Sodium (Porcine) (Heparin Sodium) 7,500 units SUBCUT Q8H [facility] Last Admin: 02/28/20 13:02 Dose: 7,500 units Documented by: Heparin Sodium (Porcine) (Heparin Sodium) 5,000 units SUBCUT Q8H [facility] Last Admin: 03/01/20 12:35 Dose: 5,000 units Documented by: Sodium Chloride (Normal Saline) 1,000 mls @ 75 mls/hr IV ASDIRECTED ONE Stop: 02/28/20 02:40 Last Admin: 02/27/20 12:10 Dose: 75 mls/hr Documented by: Remdesivir 200 mg/ Sodium (Chloride) 250 mls @ 250 mls/hr IV ONETIME ONE Stop: 02/27/20 13:32 Last Admin: 02/27/20 17:20 Dose: Not Given Documented by: Sodium Chloride (Normal Saline) 1,000 mls @ 150 mls/hr IV ASDIRECTED [facility] Last Admin: 02/29/20 12:24 Dose: 150 mls/hr Documented by: Insulin Human Lispro (Humalog) 2 unit SUBCUT ONETIME ONE Stop: 03/01/20 08:46 Last Admin: 03/01/20 09:04 Dose: 2 unit Documented by: Levalbuterol HCl (Xopenex) 1.25 mg NEB Q4H PRN PRN Reason: Shortness of Breath Last Admin: 03/01/20 11:42 Dose: 1.25 mg Documented by: Lorazepam (Ativan) 0.25 mg PO Q4H PRN PRN Reason: Anxiety Last Admin: 03/01/20 09:40 Dose: 0.25 mg Documented by: Lorazepam (Ativan) 0.5 mg PO Q2H PRN PRN Reason: Anxiety Lorazepam (Ativan) Confirm Administered Dose 2 mg .ROUTE .STK-MED ONE Stop: 03/01/20 13:18 Last Admin: 03/01/20 13:50 Dose: Not Given Documented by: Morphine Sulfate (Morphine) 4 mg IVPUSH Q4H PRN PRN Reason: Air Hunger Last Admin: 02/28/20 05:10 Dose: 4 mg Documented by: Morphine Sulfate (Morphine) 2 mg IVPUSH Q4H PRN PRN Reason: Air Hunger Last Admin: 03/01/20 11:14 Dose: 2 mg Documented by: - Exam General: Obtunded Lungs: Decreased Breath Sounds, Wheezing (audible), Other (seesaw breathing, swallow) Cardiovascular: Regular Rate, Regular Rhythm GI/Abdominal Exam: Soft, No Distention, Abnormal Bowel Sounds (decreased BS x 4) Extremities: Pedal Edema (hand edema), Pallor. No: Mottled Sepsis Event Note - Evaluation Sepsis Screening Result: No Definite Risk - Problem List & Annotations (1) End of life care SNOMED Code(s): 590512392, 293616047 Code(s): Z51.5 - ENCOUNTER FOR PALLIATIVE CARE Status: Acute Current Visit: Yes (2) Coronavirus infection SNOMED Code(s): 907689808 Code(s): B34.2 - CORONAVIRUS INFECTION, UNSPECIFIED Status: Acute Current Visit: Yes Annotation/Comment:: Not remdesivir candidate due to CKD. Comfort measures. Morphine 2 mg IV q30m as needed air hunger, added Ativan 0.5mg q30m as needed anxiety/air hunger. (3) CKD (chronic kidney disease), stage III SNOMED Code(s): 019811464 Code(s): N18.3 - CHRONIC KIDNEY DISEASE, STAGE 3 (MODERATE) * DO NOT USE * Status: Acute Current Visit: No Annotation/Comment:: No further labs since changed to comfort measures. (4) COPD, Mild chronic obstructive pulmonary disease SNOMED Code(s): 447065199 Code(s): J44.9 - CHRONIC OBSTRUCTIVE PULMONARY DISEASE, UNSPECIFIED Status: Acute Current Visit: No Annotation/Comment:: Pulmicort & Brovana discontinued. (5) Combined systolic and diastolic congestive heart failure SNOMED Code(s): 49793829, 144639716 Code(s): I50.40 - UNSP COMBINED SYSTOLIC AND DIASTOLIC (CONGESTIVE) HRT FAIL Status: Acute Current Visit: No (6) DVT prophylaxis SNOMED Code(s): 955757839, 776023362 Code(s): CKW5721 - Status: Acute Current Visit: No Annotation/Comment:: discontinued. (7) HTN (hypertension) SNOMED Code(s): 81362712 Code(s): I10 - ESSENTIAL (PRIMARY) HYPERTENSION Status: Acute Current Visit: No Annotation/Comment:: discontinued. (8) KAELA (obstructive sleep apnea) SNOMED Code(s): 58972988 Code(s): G47.33 - OBSTRUCTIVE SLEEP APNEA (ADULT) (PEDIATRIC) Status: Chronic Current Visit: No Annotation/Comment:: On nasal cannula as family requested no further use of Bipap. (9) Tobacco dependence syndrome SNOMED Code(s): 06411875 Code(s): F17.200 - NICOTINE DEPENDENCE, UNSPECIFIED, UNCOMPLICATED Status: Chronic Current Visit: No (10) Palliative care patient SNOMED Code(s): 813084661, 572864460 Code(s): Z51.5 - ENCOUNTER FOR PALLIATIVE CARE Status: Chronic Current Visit: Yes Annotation/Comment:: CHF EF <30%, severe COPD on BiPAP - Problem List Review Problem List Initiated/Reviewed/Updated: Yes - My Orders Last 24 Hours: My Active Orders 03/03/20 06:13 Polyvinyl Alcohol/Povidone [Refresh] 0 each EYEBOTH Q1H PRN - Plan Plan:: End of life care: Ativan 0.5 mg IV q30 min as needed, morphine 2 mg IV q30m as needed. Oxygen at 5L by nc per family request. Continue comfort measures. Respirations more shallow, do not anticipate him lasting much longer.
[2020-03-03] MEDS: LORazepam 2 MG/ML SDV IVPUSH PRN ×3 (17:13→21:25)
[2020-03-03] MEDS: Polyvinyl Alcohol 1.4%/Povidone 0.6% Ophth Soln 0.4 ML Box of 30 EYEBOTH PRN (23:22)
[2020-03-04] MEDS: Morphine 2 MG/ML SYRINGE IVPUSH PRN ×3 (00:06→01:46)
[2020-03-04] MEDS: Sodium Chloride 0.9% 10 ML Syringe FLUSH PRN ×3 (00:06→01:54)
[2020-03-04] MEDS: Polyvinyl Alcohol 1.4%/Povidone 0.6% Ophth Soln 0.4 ML Box of 30 EYEBOTH PRN (00:54)
--- NOTE | 2020-03-04 02:24 | PCM.SN.2 ---
- Free Text/Narrative Note: Called by nursing staff to see patient secondary to no respirations and no pulse. Patient was seen and examined. He was unresponsive and apneic. No heart beat was auscultated. No carotid pulse was felt. In keeping with the patient's wishes for DO NOT RESUSCITATE and DO NOT INTUBATE, the patient was pronounced at 2:02 AM.
--- NOTE | 2020-03-04 13:04 | PCM.DCSUM1 ---
Discharge Summary - Hospital Course HPI Initial Comments: see H&P for full details. 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 Cr was 2.7 on admission. Not a candidate for Remdesivir but was started on Dexamethasone 6 mg a day. - Discharge Data Discharge Date: 03/04/20 Discharge Disposition: 20 Preliminary Cause of *Q: Multi System Organ Failure Event(s) Leading to Patient's *Q: COVID viral pneumonia, COPD severe on 5 L oxygen at home, End stage CHF, CKD Condition: - Referral to Home Health Primary Care Physician: Dannie Sanchez MD - Discharge Diagnosis/Problem(s) (1) End of life care SNOMED Code(s): 543423115, 054709811 ICD Code: Z51.5 - ENCOUNTER FOR PALLIATIVE CARE Status: Acute (2) Coronavirus infection SNOMED Code(s): 833096018 ICD Code: B34.2 - CORONAVIRUS INFECTION, UNSPECIFIED Status: Acute Problem Details: Not remdesivir candidate due to CKD. Comfort measures. Morphine 2 mg IV q30m as needed air hunger, added Ativan 0.5mg q30m as needed anxiety/air hunger. (3) CKD (chronic kidney disease), stage III SNOMED Code(s): 660629098 ICD Code: N18.3 - CHRONIC KIDNEY DISEASE, STAGE 3 (MODERATE) * DO NOT USE * Status: Acute Problem Details: No further labs since changed to comfort measures. (4) COPD, Mild chronic obstructive pulmonary disease SNOMED Code(s): 578427289 ICD Code: J44.9 - CHRONIC OBSTRUCTIVE PULMONARY DISEASE, UNSPECIFIED Status: Acute Problem Details: Pulmicort & Brovana discontinued. (5) Combined systolic and diastolic congestive heart failure SNOMED Code(s): 07344415, 246972153 ICD Code: I50.40 - UNSP COMBINED SYSTOLIC AND DIASTOLIC (CONGESTIVE) HRT FAIL Status: Acute (6) DVT prophylaxis SNOMED Code(s): 757323540, 726676902 ICD Code: [id number] - Status: Acute Problem Details: discontinued. (7) HTN (hypertension) SNOMED Code(s): 35429362 ICD Code: I10 - ESSENTIAL (PRIMARY) HYPERTENSION Status: Acute Problem Details: discontinued. (8) KAELA (obstructive sleep apnea) SNOMED Code(s): 53688359 ICD Code: G47.33 - OBSTRUCTIVE SLEEP APNEA (ADULT) (PEDIATRIC) Status: Chronic Problem Details: On nasal cannula as family requested no further use of Bipap. (9) Tobacco dependence syndrome SNOMED Code(s): 90951450 ICD Code: F17.200 - NICOTINE DEPENDENCE, UNSPECIFIED, UNCOMPLICATED Status: Chronic (10) Palliative care patient SNOMED Code(s): 605501197, 727446184 ICD Code: Z51.5 - ENCOUNTER FOR PALLIATIVE CARE Status: Chronic Problem Details: CHF EF <30%, severe COPD on BiPAP - Patient Summary/Data Hospital Course: Mike was started on Dexamethasone 3 mg bid on admission, his potassium continued to climb even with improvement of Creatinine to 2.4. Insulin 2 units and Lasix 40 mg IV given, brought down to 6.1. He had worsening breathing, his and family asked for him to be made comfort measures on Wednesday, Morphine and Ativan were ordered. He had more relief from the Ativan. His defibrillator was turned off at 1502 on Wednesday per family request. He had not taken anything by mouth since Wednesday morning. Had been unresponsive since Wednesday, at 0202 on 03/04. - Discharge Plan Patient Handouts: COVID-19 Frequently Asked Questions, Dehydration, Adult, [id number], COVID-19: How to Protect Yourself and Others - [facility] Forms: ED Department Discharge Referrals: Dannie Sanchez MD [Primary Care Provider] - - Discharge Summary/Plan Comment DC Time >30 min.: No - Patient Data Vitals - Most Recent: Last Vital Signs Temp 97.4 F 03/02/20 08:00 Pulse 64 03/02/20 08:00 Resp 28 H 03/02/20 08:00 BP 131/75 03/02/20 00:00 Pulse Ox 93 L 03/02/20 08:00 Weight - Most Recent: 206 lb 1.6 oz Med Orders - Current: Current Medications Discontinued Medications Arformoterol Tartrate (Brovana) 15 mcg NEB BIDRT TL Last Admin: 03/01/20 06:29 Dose: 15 mcg Documented by: Artificial Tears (Refresh) 0 each EYEBOTH Q1H PRN PRN Reason: Dry Eyes Last Admin: 03/04/20 00:54 Dose: 2 drop Documented by: Artificial Tears (Refresh Tears 0.5%) Confirm Administered Dose 15 ml .ROUTE .STK-MED ONE Stop: 03/03/20 06:24 Last Admin: 03/03/20 06:45 Dose: 2 drop Documented by: Budesonide (Pulmicort) 0.5 mg NEB BIDRT [facility] Last Admin: 03/01/20 06:23 Dose: 0.5 mg Documented by: Budesonide (Pulmicort) 0.5 mg NEB BID TL Carvedilol (Coreg) 12.5 mg PO BID [facility] Last Admin: 03/01/20 08:50 Dose: 12.5 mg Documented by: Dexamethasone (Decadron) 10 mg IVPUSH ONETIME ONE Stop: 02/27/20 13:10 Last Admin: 02/27/20 14:13 Dose: 10 mg Documented by: Dexamethasone (Dexamethasone) 3 mg PO BIDMEALS [facility] Last Admin: 03/01/20 08:47 Dose: 3 mg Documented by: Dexamethasone (Dexamethasone) 6 mg PO DAILY [facility] Last Admin: 03/01/20 11:52 Dose: Not Given Documented by: Dexamethasone (Dexamethasone) 6 mg PO DAILY [facility] Dexamethasone (Dexamethasone) 3 mg PO ONETIME ONE Stop: 03/01/20 09:46 Last Admin: 03/01/20 11:23 Dose: 3 mg Documented by: Dextrose/Water (Dextrose 50% In Water) 50 ml IVPUSH ASDIRECTED PRN PRN Reason: Hypoglycemia Furosemide (Lasix) 40 mg IVPUSH NOW STA Stop: 03/01/20 11:21 Last Admin: 03/01/20 11:40 Dose: 40 mg Documented by: Glucagon (Glucagen) 1 mg IM ASDIRECTED PRN PRN Reason: Hypoglycemia Heparin Sodium (Porcine) (Heparin Sodium) 7,500 units SUBCUT Q8H [facility] Last Admin: 02/28/20 13:02 Dose: 7,500 units Documented by: Heparin Sodium (Porcine) (Heparin Sodium) 5,000 units SUBCUT Q8H [facility] [place] Last Admin: 03/01/20 12:35 Dose: 5,000 units Documented by: Sodium Chloride (Normal Saline) 1,000 mls @ 75 mls/hr IV ASDIRECTED ONE Stop: 02/28/20 02:40 Last Admin: 02/27/20 12:10 Dose: 75 mls/hr Documented by: Remdesivir 200 mg/ Sodium (Chloride) 250 mls @ 250 mls/hr IV ONETIME ONE Stop: 02/27/20 13:32 Last Admin: 02/27/20 17:20 Dose: Not Given Documented by: Sodium Chloride (Normal Saline) 1,000 mls @ 150 mls/hr IV ASDIRECTED TL Last Admin: 02/29/20 12:24 Dose: 150 mls/hr Documented by: Insulin Human Lispro (Humalog) 2 unit SUBCUT ONETIME ONE Stop: 03/01/20 08:46 Last Admin: 03/01/20 09:04 Dose: 2 unit Documented by: Insulin Human Lispro (Humalog) 300 unit SUBCUT .STK-MED ONE Stop: 03/01/20 09:01 Levalbuterol HCl (Xopenex) 1.25 mg NEB Q4H PRN PRN Reason: Shortness of Breath Last Admin: 03/01/20 11:42 Dose: 1.25 mg Documented by: Lorazepam (Ativan) 0.25 mg PO Q4H PRN PRN Reason: Anxiety Last Admin: 03/01/20 09:40 Dose: 0.25 mg Documented by: Lorazepam (Ativan) 0.5 mg PO Q2H PRN PRN Reason: Anxiety Lorazepam (Ativan) 0.5 mg IVPUSH Q30M PRN PRN Reason: Anxiety Last Admin: 03/03/20 21:25 Dose: 0.5 mg Documented by: Lorazepam (Ativan) Confirm Administered Dose 2 mg .ROUTE .STK-MED ONE Stop: 03/01/20 13:18 Last Admin: 03/01/20 13:50 Dose: Not Given Documented by: Morphine Sulfate (Morphine) 4 mg IVPUSH Q4H PRN PRN Reason: Air Hunger Last Admin: 02/28/20 05:10 Dose: 4 mg Documented by: Morphine Sulfate (Morphine) 2 mg IVPUSH Q4H PRN PRN Reason: Air Hunger Last Admin: 03/01/20 11:14 Dose: 2 mg Documented by: Morphine Sulfate (Morphine) 2 mg IVPUSH Q30M PRN PRN Reason: Air Hunger Last Admin: 03/04/20 01:46 Dose: 2 mg Documented by: Sodium Chloride (Saline Flush) 10 ml FLUSH ASDIRECTED PRN PRN Reason: Keep Vein Open Last Admin: 03/04/20 01:54 Dose: 10 ml Documented by: *Q Meaningful Use (DIS) - VTE *Q VTE Mechanical Contraindications *Q: At Risk for Falls VTE Pharmacological Contraindications *Q: Risk of Bleeding
== END 2020-03-04 02:02 | disposition expired | DRG 177 ==
LOC: FB.ED 09:46 → FB.MS 11:31
PROVIDERS: ADMIT Emergency Medicine; ATTEND Family Medicine
PROC: 5A09357 Assistance with Respiratory Ventilation, Less than 24 Consecutive Hours, Continuous Positive Airway Pressure (ICD-10-PCS; principal; 2020-02-27)
DX: U07.1 COVID-19 (principal); I50.43 Acute on chronic combined systolic (congestive) and diastolic (congestive) heart failure; J12.89 Other viral pneumonia; I11.0 Hypertensive heart disease with heart failure; I50.9 Heart failure, unspecified; N18.4 Chronic kidney disease, stage 4 (severe); I42.9 Cardiomyopathy, unspecified; I48.20 Chronic atrial fibrillation, unspecified; G47.30 Sleep apnea, unspecified; I13.0 Hypertensive heart and chronic kidney disease with heart failure and stage 1 through stage 4 chronic kidney disease, or unspecified chronic kidney disease; N17.9 Acute kidney failure, unspecified; Z79.51 Long term (current) use of inhaled steroids; Z51.5 Encounter for palliative care; Z66 Do not resuscitate; G47.33 Obstructive sleep apnea (adult) (pediatric); F17.200 Nicotine dependence, unspecified, uncomplicated; E87.5 Hyperkalemia; E78.5 Hyperlipidemia, unspecified; J44.9 Chronic obstructive pulmonary disease, unspecified; H01.9 Unspecified inflammation of eyelid; E78.00 Pure hypercholesterolemia, unspecified; N42.9 Disorder of prostate, unspecified; E86.0 Dehydration; R45.1 Restlessness and agitation; G25.81 Restless legs syndrome; Z79.82 Long term (current) use of aspirin; Z79.899 Other long term (current) drug therapy; Z99.81 Dependence on supplemental oxygen; Z86.79 Personal history of other diseases of the circulatory system; Z88.0 Allergy status to penicillin; Z90.49 Acquired absence of other specified parts of digestive tract; Z87.01 Personal history of pneumonia (recurrent); Z86.19 Personal history of other infectious and parasitic diseases; Z98.890 Other specified postprocedural states; Z98.41 Cataract extraction status, right eye; Z98.42 Cataract extraction status, left eye; Z82.49 Family history of ischemic heart disease and other diseases of the circulatory system; Z95.810 Presence of automatic (implantable) cardiac defibrillator
CPT/HCPCS: 36415; 51702; 71045; 80048; 80053; 80069; 81001; 82728; 82803; 82962; 83880; 84132; 84484; 85025; 85379; 85610; 85730; 93005; 94640; 96374; 99285; 99285-25; A9270-GY; J1100; J1644; J1815; J1940; J2060; J2270; J7030; J7605; J7612-GY; J8540; U0002